=== PATIENT | female | born 1940 | race Caucasian/White ===

== ENCOUNTER 2016-08-05 09:10 | Observation (INO) | payer MEDICARE ==
[~2016-08-05] VITALS: Ht 165.1 cm; Wt 65.0 kg
[~2016-08-05 09:10] MED LIST: CALC500T21 PO; EZET10 PO; LETR2.5T PO; NIFE1TAB85 PO; OMEGCAP21 PO; SM C PO; VITATAB11 PO; VITATAB25 PO
[2016-08-05 09:13] VITALS: BP 188/91; PULSE 76; RESP 16; TEMP 98.2; O2SAT 99
[2016-08-05] MEDS ORDERED: CALC1WAF CHEW (09:24)
[2016-08-05] MEDS ORDERED: FISH1000 PO (09:24)
[2016-08-05] MEDS ORDERED: CRAN125T PO (09:24)
[2016-08-05] MEDS ORDERED: NIFE10CA PO (09:24)
[2016-08-05] MEDS ORDERED: VITA100T54 PO (09:24)
[2016-08-05] MEDS ORDERED: LETR2.5T PO (09:24)
[2016-08-05] MEDS ORDERED: VITA100064 PO (09:24)
[2016-08-05] MEDS ORDERED: ASPIRIN 81 MG CHEW TAB PO ONE (09:30)
[2016-08-05] MEDS ORDERED: MORPHINE SULFATE 4 MG/ML INJ IV PUSH ONE (09:30)
[2016-08-05] MEDS ORDERED: SODIUM CHLORIDE 0.9% FLUSH 5 ML FLUSH IVF PRN ×2 (09:30→11:00)
[2016-08-05] MEDS: NITROGLYCERIN 0.4 MG SL 25 TABS/BTL SL SCH ×3 (09:35→09:58)
--- NOTE | 2016-08-05 09:53 | PD ---
HPI Chief Complaint: Chest Pain Time Seen by Provider: 09:19 Travel History International Travel<30 days: No Contact w/Intl Traveler<30days: No Traveled to known affect area: No History of Present Illness HPI Patient is a 76-year-old female with history of COPD, HTN, DM, left breast cancer status post lumpectomy here with complaint of chest pain. Patient states that she awoke with chest pain at approximately 8 to 8:15 this morning. This is left-sided just lateral to the breast. She describes it as a squeezing ache. Pain is moderate. It has been constant since onset. She denies any associated shortness of breath, nausea vomiting, diaphoresis. Pain has actually increased since patient called 911, stable in route per EMS. Blood glucose normal. Patient denies any history of cardiac disease, per chart review she was seen here in 2013 with left-sided chest pain and had a negative stress test. Patient has not had any provocative testing since. PFSH Past Medical History Heart Rhythm Problems: No Cancer: Yes (LEFT BREAST) Cardiac Catheterization: No Cardiovascular Problems: Yes High Cholesterol: Yes Congestive Heart Failure: No COPD: Yes Diabetes: Yes Patient Takes Glucophage: No GERD: Yes Genitourinary: Yes Heparin Induced Thrombocytopen: No Hypertension: Yes Immune Disorder: No Kidney Stones: Yes Musculoskeletal: Yes Neurologic: No Psychiatric: No Reproductive: No Respiratory: Yes (COPD) Radiation Therapy: Yes Shingles: Yes Influenza Vaccination: Yes Past Surgical History Abdominal Surgery: Yes Appendectomy: Yes Body Medical Devices: CLIP LEFT BREAST FROM LUMPECTOMY Cardiac Surgery: No Coronary Artery Bypass Graft: No Ear Surgery: No Endocrine Surgery: No Eye Surgery: No Genitourinary Surgery: No Gynecologic Surgery: Yes Hysterectomy: Yes Neurologic Surgery: No Oral Surgery: No Thoracic Surgery: No Tonsillectomy: Yes Other Surgery: Yes (LEFT BREAST LUMPECTOMY) Social History Alcohol Use: No Tobacco Use: No Substance Use: No Allergies-Medications (Allergen,Severity, Reaction): Coded Allergies: Sulfa (Verified Allergy, Severe, Nausea/Vomiting, 08/05/16) Reported Meds & Prescriptions Reported Meds & Active Scripts Active Reported Fish Oil ([place]-3 Fatty Acids) 1,000 Mg Cap 1 Tab PO DAILY Nifedipine 10 Mg Cap 30 Mg PO DAILY Letrozole 2.5 Mg Tab 1 Tab PO DAILY Cranberry (Cranberry (Vaccinium Macrocarpon)) 125 Mg Tab 1 Tab PO DAILY Vitamin D (Cholecalciferol) 1,000 Unit Tab 1,000 Units PO DAILY Calcium Carbonate 500 Mg Wafr 500 Mg CHEW DAILY 500 mg calcium carbonate (200 mg elemental calcium) Vitamin B-1 (Thiamine HCl) Unknown Strength Tab Unknown Dose PO DAILY Review of Systems Except as stated in HPI: all other systems reviewed are Neg Physical Exam Narrative GENERAL: Elderly female in no acute distress SKIN: Warm and dry. HEAD: Normocephalic. EYES: No scleral icterus. No injection or drainage. ENT: Mucous membranes pink and moist. NECK: Supple CARDIOVASCULAR: Regular rate and rhythm. No murmur appreciated. Slight reproducible tenderness to palpation of the left sternal margin, remote to patient's complaint of pain RESPIRATORY: No accessory muscle use. Clear to auscultation. Breath sounds equal bilaterally. GASTROINTESTINAL: Abdomen soft, non-tender, nondistended. MUSCULOSKELETAL: No obvious deformities. No edema. NEUROLOGICAL: Awake and alert. Motor grossly within normal limits. Normal speech. PSYCHIATRIC: Appropriate mood and affect; insight and judgment normal. Data Data Last Documented VS Vital Signs Date Time Temp Pulse Resp B/P Pulse Ox O2 Delivery O2 Flow Rate FiO2 08/05/16 10:10 80 20 162/72 99 Nasal Cannula 2 08/05/16 09:13 98.2 Orders Electrocardiogram (08/05/16 09:22) Basic Metabolic Panel (Bmp) (08/05/16 09:22) Ckmb (Isoenzyme) Profile (08/05/16 09:22) Complete Blood Count With Diff (08/05/16:22) Magnesium (Mg) (08/05/16:22) Prothrombin Time / Inr (Pt) (08/05/16:22) Act Partial Throm Time (Ptt) (08/05/16 09:22) Troponin I (08/05/16:22) Chest, Single Ap (08/05/16:22) Ecg Monitoring (08/05/16:22) Bilateral Bp Monitoring (08/05/16 09:22) Iv Access Insert/Monitor (08/05/16 09:22) Oximetry (08/05/16 09:22) Aspirin Chew (Aspirin Chew) (08/05/16 09:30) Sodium Chloride 0.9% Flush (Ns Flush) (08/05/16 09:30) Morphine Inj (Morphine Inj) (08/05/16 09:30) Nitroglycerin Sl (Nitrostat Sl) (08/05/16 09:30) Labs Laboratory Tests Test 08/05/16 09:40 White Blood Count 6.6 TH/MM3 Red Blood Count 4.64 MIL/MM3 Hemoglobin 13.9 GM/DL Hematocrit 41.6 % Mean Corpuscular Volume 89.6 FL Mean Corpuscular Hemoglobin 30.0 PG Mean Corpuscular Hemoglobin 33.4 % Concent Red Cell Distribution Width 13.3 % Platelet Count 271 TH/MM3 Mean Platelet Volume 8.2 FL Neutrophils (%) (Auto) 59.0 % Lymphocytes (%) (Auto) 25.4 % Monocytes (%) (Auto) 13.7 % Eosinophils (%) (Auto) 0.9 % Basophils (%) (Auto) 1.0 % Neutrophils # (Auto) 3.9 TH/MM3 Lymphocytes # (Auto) 1.7 TH/MM3 Monocytes # (Auto) 0.9 TH/MM3 Eosinophils # (Auto) 0.1 TH/MM3 Basophils # (Auto) 0.1 TH/MM3 CBC Comment DIFF FINAL Differential Comment Prothrombin Time 10.9 SEC Prothromb Time International 1.0 RATIO Ratio Activated Partial 23.3 SEC Thromboplast Time Sodium Level 142 MEQ/L Potassium Level 3.5 MEQ/L Chloride Level 105 MEQ/L Carbon Dioxide Level 31.3 MEQ/L Anion Gap 6 MEQ/L Blood Urea Nitrogen 13 MG/DL Creatinine 0.66 MG/DL Estimat Glomerular Filtration 87 ML/MIN Rate Random Glucose 105 MG/DL Calcium Level 9.1 MG/DL Magnesium Level 2.2 MG/DL Total Creatine Kinase 88 U/L Troponin I LESS THAN 0.02 NG/ML MDM Medical Decision Making Medical Screen Exam Complete: Yes Emergency Medical Condition: Yes Medical Record Reviewed: Yes Differential Diagnosis 76-year-old female with history of COPD, HTN, DM, left breast cancer status post lumpectomy here with complaint of chest pain since awaking this morning at a proximal to 8-8:15am. Differential includes ACS, atypical chest pain, musculoskeletal and less likely GERD, PE or dissection. Narrative Course Patient placed on monitor, IV established and blood obtained. Twelve-lead EKG shows sinus rhythm without notable ST or T-wave abnormalities and normal intervals. Patient was given aspirin. She was given nitroglycerin, approximately several minutes later was given morphine and then felt quite lightheaded, dizzy and had a bradycardic hypotensive episode with associated syncope of less than 60 seconds. No witnessed seizure activity and no postictal phase. Upon waking from her syncopal episode patient states that her chest pain has since resolved but of course she feels lightheaded. Her hypotensive and bradycardic spell was transient and within 2 minutes patient's vital signs were back to normal. Portal chest x-ray was obtained and by my read is unremarkable. CBC, BMP, CK-MB, magnesium, troponin, coags were obtained and are all unremarkable. I feel the patient needs provocative testing. I spoke with the chest pain center PA who felt comfortable taking this patient despite her medicated-related presyncopal episode. Patient will be admitted to chest pain center for further enzymes and potential provocative testing. Diagnosis Primary Impression: Chest pain Qualified Code: R07.2 - Precordial pain Additional Impression: Syncope Qualified Code: R55 - Syncope, unspecified syncope type Admitting Information Admitting Physician Requests: Diana Cuevas MD Aug 05, 2016 09:53
[2016-08-05 09:58] LABS: AUTOMATED NEUTROPHIL # 3.9 TH/MM3 (1.8-7.7); BASOPHIL # 0.1 TH/MM3 (0-0.2); EOSINOPHIL # 0.1 TH/MM3 (0-0.4); EOSINOPHIL % 0.9 % (0.0-4.0); HEMATOCRIT 41.6 % (35.0-46.0); HEMO FLAGS DIFF FINAL; LYMPH % 25.4 % (9.0-44.0); LYMPHOCYTE # 1.7 TH/MM3 (1.0-4.8); MEAN CELL VOLUME 89.6 FL (80.0-100.0); MEAN CORPUSCULAR HGB CONC 33.4 % (32.0-36.0); MONO % 13.7 % (0.0-8.0); PLATELET COUNT 271 TH/MM3 (150-450); RED BLOOD COUNT 4.64 MIL/MM3 (4.00-5.30); RED CELL DISTRIBUTION WIDTH 13.3 % (11.6-17.2); WHITE BLOOD COUNT 6.6 TH/MM3 (4.0-11.0)
[2016-08-05 10:09] LABS: APTT (PATIENT) 23.3 SEC (24.3-30.1); PROTHROMBIN TIME - PATIENT 10.9 SEC (9.8-11.6)
[2016-08-05 10:10] VITALS: BP 162/72; PULSE 80; RESP 20; O2SAT 99
[2016-08-05 10:10] LABS: ANION GAP 6 MEQ/L (5-15); BICARBONATE 31.3 MEQ/L (21.0-32.0); BLOOD UREA NITROGEN 13 MG/DL (7-18); CHLORIDE 105 MEQ/L (98-107); GLOMERULAR FILTRATION RATE 87 ML/MIN (>89); MAGNESIUM 2.2 MG/DL (1.5-2.5); POTASSIUM 3.5 MEQ/L (3.5-5.1); SODIUM (NA) 142 MEQ/L (136-145)
[2016-08-05 10:15] LABS: CREATINE KINASE 88 U/L (26-192)
[2016-08-05] MEDS ORDERED: NITROGLYCERIN 0.4 MG SL 25 TABS/BTL SL PRN (11:00)
[2016-08-05] MEDS ORDERED: ONDANSETRON HCL 4 MG/2 ML VIAL IV PRN (11:00)
[2016-08-05] MEDS ORDERED: ACETAMINOPHEN 500 MG CPLT PO PRN (11:00)
[2016-08-05 11:06] VITALS: BP 143/65; PULSE 54; RESP 18; O2SAT 100
[2016-08-05 11:39] VITALS: O2SAT 100
--- NOTE | 2016-08-05 13:12 | HHI.HP ---
HPI Primary Care Physician Ricarda Nieto M.D. Chief Complaint Chest pressure History of Present Illness 76-year-old female with known hypertension and dyslipidemia presents to the emergency room with an onset of chest pain upon awakening this morning. Onset 8 :15. States I "woke up with pain." Unsure if pain woke her up. Location left axillary and under left breast. Described as pressure. Severity 6/10. No radiation of pain. Duration was constant until receiving nitroglycerin and morphine. No associated symptoms of nausea, vomiting, diaphoresis, or shortness of breath. No known precipitating factors. Currently she is chest pain-free. She's had similar chest pain in the past 2013. Admitted to chest pain center and completed exercise stress test. She was worried about driving herself to the hospital, therefore, she called EMS for transportation. After receiving nitroglycerin and morphine, she had a brief syncopal episode. Patient endorses multiple syncopal episodes since her "teen years" and easily faints. Review of Systems General: No fatigue,weakness, fever, chills, recent illness, change in appetite HEENT: No DEJESUS, no vision changes, no nasal congestion or drainage, no dysphasia CV: As stated above. No current chest pain or pressure. No palpitations, intermittent leg pain, dizziness RESP: No SOB, cough, wheeze, hemoptysis, recent URI GI: No nausea, vomiting. Past 2 weeks bowel changes that include diarrhea and constipation. Seen her PCP last week regarding this. No distention, melena, blood in the stool. No change in appetite, no unintentional weight gain or weight loss : No dysuria, urgency, frequency, hematuria EXT: No lower leg edema, no paraesthesias MS: Intermittent joint pain. Occurs in different joints on a regular basis for the past 2 months. Recently had multiple tests and following with a neurologist regarding this. No change in ROM, ambulates independently NEURO: Endorses long-standing syncopal episodes since her teens. Has been thoroughly worked up "multiple times" told she vasovagals. No change in memory , dizziness, difficulty with balance, motor/sensory deficits PSYCH: No anxiety or depression SKIN: No rashes, no concerning lesions Past Family Social History Allergies: Coded Allergies: Sulfa (Verified Allergy, Severe, Nausea/Vomiting, 08/05/16) Past Medical History Breast cancer, GERD, dyslipidemia, hypertension, shingles, nephrolithiasis, Mosqueda 's palsy, benign colon polyps. Mosqueda's palsy, mild carotid artery stenosis, thyroid nodule, syncopal episodes (vasovagal) Past Surgical History Left breast lumpectomyJuly 2011 (radiation after lumpectomy completed February 2012) Appendectomy, hysterectomy, tonsillectomy Reported Medications Active Reported Fish Oil ([place]-3 Fatty Acids) 1,000 Mg Cap 1 Tab PO DAILY Nifedipine 10 Mg Cap 30 Mg PO DAILY Letrozole 2.5 Mg Tab 1 Tab PO DAILY Cranberry (Cranberry (Vaccinium Macrocarpon)) 125 Mg Tab 1 Tab PO DAILY Vitamin D (Cholecalciferol) 1,000 Unit Tab 1,000 Units PO DAILY Calcium Carbonate 500 Mg Wafr 500 Mg CHEW DAILY 500 mg calcium carbonate (200 mg elemental calcium) Vitamin B-1 (Thiamine HCl) Unknown Strength Tab Unknown Dose PO DAILY Vitamin B12 (unknown strength) PO Daily Active Ordered Medications Current Medications Medications (Trade) Dose Ordered Sig/Jeannette Route Start Time Stop Time Status Last Admin (Tylenol) 500 mg Q4H PRN PO 08/05/16 11:00 (Zofran Inj) 4 mg Q6H PRN IV 08/05/16 11:00 (Nitrostat Sl) 0.4 mg Q5M PRN SL 08/05/16 11:00 Family History Noncontributory for early onset cardiovascular disease. Brother had CABG later in life, age unknown. Social History Lifelong nonsmoker. Denies any alcohol or illegal drug use. She is a . Currently working at [employer]. No known diabetes. Endorses dyslipidemia and hypertension. Physical Exam Vital Signs Vital Signs Date Time Temp Pulse Resp B/P Pulse Ox O2 Delivery O2 Flow Rate FiO2 08/05/16 11:39 100 21 08/05/16 11:06 54 18 143/65 100 Nasal Cannula 2 08/05/16 11:06 53 18 100 Nasal Cannula 2 08/05/16 10:56 18 08/05/16 10:10 80 20 162/72 99 Nasal Cannula 2 08/05/16 09:13 98.2 76 16 188/91 99 Physical Exam GENERAL: Alert WN, WD, NAD, pleasant, elderly female HEAD: NC, AT EYES: Sclera clear, conjunctiva without injection, pupils equal and round NECK: Supple, no masses, trachea midline CV: RRR, without murmur, rub, gallop, no JVD, S1-S2 no S3-S4. RESP: Clear lungs throughout bilateral, no crackles, wheeze, rhonchi, symmetrical chest rise, nonlabored, able to speak in full sentences ABD: Soft, NT, ND, no masses, positive bowel tones BACK: No CVAT, no scoliosis EXT: Pulses +24, no dependent edema MS: Normal tone 4 extremities, nontender, no obvious deformities, full range of motion NEURO: CN II through CN XII grossly intact, motor strength 5/5, gait WNL PSYCH: A+O 3, pleasant affect, appropriate speech, appropriate mood and affect , insight and judgment SKIN: Normal turgor, normal texture, no lesions, no rashes Laboratory Laboratory Tests Test 08/05/16 09:40 White Blood Count 6.6 Red Blood Count 4.64 Hemoglobin 13.9 Hematocrit 41.6 Mean Corpuscular Volume 89.6 Mean Corpuscular Hemoglobin 30.0 Mean Corpuscular Hemoglobin 33.4 Concent Red Cell Distribution Width 13.3 Platelet Count 271 Mean Platelet Volume 8.2 Neutrophils (%) (Auto) 59.0 Lymphocytes (%) (Auto) 25.4 Monocytes (%) (Auto) 13.7 Eosinophils (%) (Auto) 0.9 Basophils (%) (Auto) 1.0 Neutrophils # (Auto) 3.9 Lymphocytes # (Auto) 1.7 Monocytes # (Auto) 0.9 Eosinophils # (Auto) 0.1 Basophils # (Auto) 0.1 CBC Comment DIFF FINAL Differential Comment Prothrombin Time 10.9 Prothromb Time International 1.0 Ratio Activated Partial 23.3 Thromboplast Time Sodium Level 142 Potassium Level 3.5 Chloride Level 105 Carbon Dioxide Level 31.3 Anion Gap 6 Blood Urea Nitrogen 13 Creatinine 0.66 Estimat Glomerular Filtration 87 Rate Random Glucose 105 Calcium Level 9.1 Magnesium Level 2.2 Total Creatine Kinase 88 Troponin I LESS THAN 0.02 Result Diagram: 08/05/1640 08/05/16 0940 Course EKGs First EKG normal sinus rhythm with no ST or T-segment changes Assessment and Plan Assessment and Plan #1 Chest painadmitted to chest pain center. Will complete 3 sets of EKGs, cardiac enzymes, and continue to monitor. Will be seen and evaluated by Dr. Jason Higgins. Discussed in length if serial cardiac serial testing is unremarkable, military pay clerk may recommend exercise stress test. Agreeable to plan of care. Further disposition to follow. #2 Syncopal episode-patient received nitroglycerin and morphine within minutes apart. History of multiple syncopal episodes, follows with a neurologist and has thoroughly been worked up. No further testing at this time. Amaya Esposito Aug 05, 2016 13:11
[2016-08-05 13:58] VITALS: BP 155/97; PULSE 55; RESP 18; O2SAT 98
[2016-08-05 14:56] LABS: CREATINE KINASE 74 U/L (26-192)
[2016-08-05] MEDS ORDERED: LETROZOLE 2.5 MG PO SCH (15:00)
[2016-08-05] MEDS ORDERED: REGADENOSON INJ 0.4 MG/5 ML SYR ONE (16:03)
--- NOTE | 2016-08-05 17:01 | RADRPT ---
EXAM DATE/TIME: 08/05/2016 15:42 [facility] COMPARISON: No previous studies available for comparison. INDICATIONS : Substernal chest pain. Angina. DOSE: 25.8 mCi Tc99m Myoview at stress. 8.1 mCi Tc99m Myoview at rest. 0.4 mg Lexiscan STRESS SYMPTOMS: None. EJECTION FRACTION: > 70% MEDICAL HISTORY : Hypertension. Gastroesophageal reflux disease. Carcinoma, breast. SURGICAL HISTORY : Tonsillectomy. Hysterectomy. Appendectomy. Lumpectomy. ENCOUNTER: Initial ACUITY: 1 day PAIN SCALE: 6/10 LOCATION: Substernal chest TECHNIQUE: The patient underwent pharmacologic stress with infusion of prescribed dose. Continuous ECG tracing was monitored during stress. Gated SPECT imaging was performed after stress and conventional SPECT i maging was performed at rest. The examination was performed on a SPECT/CT scanner, both attenuation and non-corrected datasets were reviewed. FINDINGS: DISTRIBUTION: There is no redistribution suggest stress-induced ischemia. Moderate gut activity does obscure the in ferior wall. PERFUSION STUDY: The pattern of perfusion at stress is within normal limits. GATED STUDY: There is intact wall motion and thickening without hypokinetic or dyskinetic segments. Ejection frac tion is calculated at greater than 70%. CONCLUSION: Negative for stress-induced ischemia.. RISK CATEGORY: Low (<1% Annual Mortality Rate) Rubén Posadas MD FACR on August 05, 2016 at 16:58 Board Certified Radiologist. This report was verified electronically.
--- NOTE | 2016-08-05 17:07 | HHI.DCPOC ---
Discharge Care Plan Diagnosis: (1) Atypical chest pain Goals to Promote Your Health * To prevent worsening of your condition and complications * To maintain your health at the optimal level Directions to Meet Your Goals Take your medications as prescribed Follow your dietary instruction Follow activity as directed Keep your appointments as scheduled Take your immunizations and boosters as scheduled If your symptoms worsen call your PCP, if no PCP go to Urgent Care Center or Emergency Room Smoking is Dangerous to Your Health. Avoid second hand smoke Call the 24-hour hour crisis hotline for domestic abuse at Amaya Esposito Aug 05, 2016 17:07
[2016-08-05] MEDS ORDERED: SODIUM CHLORIDE 0.9% FLUSH 5 ML FLUSH IVF SCH (21:00)
--- NOTE | 2016-08-06 12:33 | EKG ---
Date Performed: 08/05/2016 Time Performed: 09:26:08 PTAGE: 76 years EKG: Sinus rhythm NORMAL ECG INTERPRETATION BASED ON A DEFAULT AGE OF 40 YEARS PREVIOUS TRACING : 08/04/2015 17.02 DOCTOR: Blaze Elise Interpretating Date/Time 08/06/2016 12:31:41
--- NOTE | 2016-08-06 12:33 | EKG ---
Date Performed: 08/05/2016 Time Performed: 13:43:33 PTAGE: 76 years EKG: SINUS BRADYCARDIA BORDERLINE ECG PREVIOUS TRACING : 08/05/2016 09.26 DOCTOR: Blaze Elise Interpretating Date/Time 08/06/2016 12:32:11
--- NOTE | 2016-08-06 12:44 | TR ---
Date Performed: 08/05/2016 Time Performed: 16:10:43 DOCTOR: Blaze Elise DRUG LIST: CLINICAL HISTORY: CHEST PAIN REASON FOR TEST: CHEST PAIN REASON FOR ENDING: OBSERVATION: CONCLUSION: Lexiscan stress test was performed under standard four minute protocol. Radionuclide was injected one minute prior to ending the test. The patient was asymptomatic. No electrocardiograp hic abnormalities were present to suggest ischemia. Recovery was quick and uneventful. Nuclear imagin g and interpretation are pending. COMMENTS:
--- NOTE | 2016-08-06 12:50 | RADRPT ---
EXAM DATE/TIME: 08/05/2016 09:35 [facility] COMPARISON: CHEST SINGLE AP, May 04, 2012, 11:59. CHEST PA & LAT, December 06, 2013, 8:53. CHEST SINGLE AP, [facility] 2015, 14:45. INDICATIONS : Patient woke up this morning with chest pain. MEDICAL HISTORY : Hypertension. Chronic obstructive pulmonary disease. SURGICAL HISTORY : Tonsillectomy. Hysterectomy. Appendectomy. ENCOUNTER: Initial ACUITY: 1 day PAIN SCORE: 6/10 LOCATION: chest FINDINGS: Portable AP view of the chest demonstrates a normal-sized cardiac silhouette with calcification of th e aorta. Right hilum has a stable appearance. No effusion, consolidation, or pneumothorax is visualiz ed. The bones and soft tissues demonstrate no acute abnormality. CONCLUSION: No acute cardiopulmonary abnormality is identified. Dylan Montiel MD on August 06, 2016 at 12:47 Board Certified Radiologist. This report was verified electronically.
== END 2016-08-05 17:54 | disposition home or self-care (01) ==
LOC: NEPE 09:10 → NEDA 10:33 → NEPGCP 15:28
PROVIDERS: ADMIT Internal Medicine Cardiovascular Disease; ATTEND Internal Medicine Cardiovascular Disease
DX: R07.2 Precordial pain (principal); C50.912 Malignant neoplasm of unspecified site of left female breast; J44.9 Chronic obstructive pulmonary disease, unspecified; I10 Essential (primary) hypertension; E11.9 Type 2 diabetes mellitus without complications; K21.9 Gastro-esophageal reflux disease without esophagitis
CPT/HCPCS: 71010; 78452; 80048; 82550; 83735; 84484; 85025; 85610; 85730; 93005; 93017; 96374; 99285; A9502; G0378; J2270; J2785